=== PATIENT | female | born 2000 | race Two or more races ===

== ENCOUNTER 2022-08-29 14:09 | Outpatient (CLI) | payer OTHER | END 2022-08-29 15:45 | disposition home or self-care (01) | LOC: PRENATAL 14:09 | PROVIDERS: ATTEND Obstetrics & Gynecology Maternal & Fetal Medicine | DX: O35.9XX0 Maternal care for (suspected) fetal abnormality and damage, unspecified, not applicable or unspecified (principal); O35.3XX0 Maternal care for (suspected) damage to fetus from viral disease in mother, not applicable or unspecified; Z3A.17 17 weeks gestation of pregnancy ==